=== PATIENT | female | born 1965 | race Two or more races ===

== ENCOUNTER 2019-01-27 04:56 | Inpatient (IN) | payer MEDICARE ==
[~2019-01-27] VITALS: Ht 165.1 cm; Wt 97.5 kg
[2019-01-27] MEDS ORDERED: ALPR0.255 PO (05:25)
[2019-01-27] MEDS ORDERED: VENL150C58 PO (05:25)
[2019-01-27] MEDS ORDERED: MAGNESIUM HYDROXIDE 30 ML UDC PO PRN (05:30)
[2019-01-27] MEDS ORDERED: LORAZEPAM 0.5 MG TABLET PO PRN (05:30)
[2019-01-27] MEDS ORDERED: MAG HYDROX/AL HYDROX/SIMETH 30 ML UDC PO PRN (05:30)
[2019-01-27] MEDS ORDERED: BLOOD SUGAR DIAGNOSTIC 1 EACH STRIP IN ONE (05:30)
[2019-01-27 05:38] VITALS: BP 108/77
[2019-01-27] MEDS ORDERED: PROP40TA7 PO (05:38)
[2019-01-27] MEDS ORDERED: ESOM40CA PO (05:38)
[2019-01-27] MEDS ORDERED: ESTR0.5T PO (05:38)
[2019-01-27] MEDS ORDERED: NICO-677 TD (05:38)
[2019-01-27] MEDS ORDERED: LISI-607 PO (05:38)
[2019-01-27] MEDS ORDERED: GABA800T PO (05:43)
--- NOTE | 2019-01-27 05:46 | NUR ---
Admitted a 54 y/o female from [facility]. On 5150 hold as DTS. Per hold, patient was out of control, taken 10 xanax and alcohol. Patient admitting Dx. Depression and medical hx. of Hypertension. Upon face to face evaluation, patient appeared alert and oriented x 3-4, calm, cooperative, pleasant, interactive, denies si/hi/ah/vh, stated that she was upset and depressed because her father and son is acting out. Explained the paper works and patient sign the consents. Informed of visiting hours and unit policies. Belongings and contraband checked. Q15 min checks initiated. Care plan started. Vital signs checked and recorded. Patient's rights discussed, guide to prescription meds handbook provided. Patient advised of the hold. Notified Dr. Hoff of the admission. MRSA swab done. Advisement explained and patient verbalized understanding. Will monitor patient for mood, safety and behavior. Will endorse to the day shift.
--- NOTE | 2019-01-27 06:17 | NUR ---
GPS-RN PATIENT REFUSED TO HAVE HER BLOOD SUGAR CHECK DESPITE OF EXPLANATION THE RISKS AND BENEFITS. PATIENT STILL REFUSED.
[2019-01-27 07:52] LABS: ALBUMIN 4.2 g/dL (3.4-5.0); BILIRUBIN,TOTAL 0.3 mg/dL (0.2-1.0); CALCIUM, SERUM 9.3 mg/dL (8.5-10.1); TOTAL PROTEIN, SERUM 8.5 g/dL (6.4-8.2)
[2019-01-27 08:00] VITALS: BP 133/62
[2019-01-27] MEDS: LISINOPRIL (5MG) 5 MG TABLET PO SCH (09:03)
[2019-01-27] MEDS: PANTOPRAZOLE 40 MG TABLET.DR PO SCH (09:03)
[2019-01-27] MEDS: NICOTINE PATCH (21MG) 21 MG PATCH.TD24 TD SCH (09:03)
[2019-01-27] MEDS: GABAPENTIN 400 MG CAPSULE PO SCH (09:03)
[2019-01-27] MEDS: PROPRANOLOL HCL 40 MG TABLET PO SCH (09:04)
--- NOTE | 2019-01-27 15:38 | NUR ---
RN NOTE: PATIENT'S BROTHER SANTA RETURNED PHONE CALL, MADE AWARE OF PATIENTS ADMISSION, ALSO INFORMED BROTHER OF PATIENT'S STATE IDENTIFICATION CARD WAS LEFT AT [facility] AND NEEDS TO BE PICKED UP.
[2019-01-27 16:00] VITALS: BP 111/67
[2019-01-27] MEDS: OXCARBAZEPINE 150 MG TABLET PO SCH (18:57)
[2019-01-27 20:07] VITALS: BP 149/86
[2019-01-27] MEDS: TEMAZEPAM 7.5 MG CAPSULE PO PRN (21:59)
[2019-01-28 07:45] LABS: CHOLESTEROL 156 mg/dL (<200); HDL CHOLESTEROL 51 mg/dL (40-60); LDL 79 mg/dL (0-99); TRIGLYCERIDES 193 mg/dL (30-150)
[2019-01-28 08:00] VITALS: BP 146/80
[2019-01-28] MEDS: NICOTINE PATCH (21MG) 21 MG PATCH.TD24 TD SCH (08:46)
[2019-01-28] MEDS: OXCARBAZEPINE 150 MG TABLET PO SCH ×2 (08:47→21:06)
[2019-01-28] MEDS: PANTOPRAZOLE 40 MG TABLET.DR PO SCH (08:47)
[2019-01-28] MEDS: PROPRANOLOL HCL 40 MG TABLET PO SCH (08:47)
[2019-01-28] MEDS: GABAPENTIN 400 MG CAPSULE PO SCH (08:47)
[2019-01-28] MEDS: LISINOPRIL (5MG) 5 MG TABLET PO SCH (08:47)
[2019-01-28] MEDS ORDERED: VENLAFAXINE XR 75 MG CAP.SR.24H PO SCH (09:00)
[2019-01-28] MEDS: VENLAFAXINE XR 75 MG CAP.SR.24H PO SCH (09:14)
[2019-01-28] MEDS: ACETAMINOPHEN 325 MG TABLET PO PRN (11:14)
--- NOTE | 2019-01-28 14:08 | NUR ---
Family Contact: SW called the pts brother, Ryan ([phone]), and informed him about the pts initial discharge plan and the initial treatment plan. SHARIFA stated that she will work with the pt in terms of having alternative coping mechanisms and assisting in her search for a psychiatrist.
--- NOTE | 2019-01-28 15:50 | NUR ---
Initial Discharge Plan: Pt currently resides at [address] [place] [address]; ([phone]). Per pt, she would like to return to her home. SW will work with the pt and the MD regarding appropriate discharge planning. SW will form a safe and proper discharge.
[2019-01-28 16:00] VITALS: BP 144/88
--- NOTE | 2019-01-28 19:55 | NUR ---
RN OPENING NOTES PATIENT WALKING AROUND, TALKING TO PEERS. ALERT AND ORIENTED X 3. NO COMPLAINT OF PAIN OR DISCOMFORT. DENIES SUICIDAL IDEATION OF THIS TIME. EDUCATION GIVEN ON THE USE OF CALL LIGHT. BILATERAL UPPER SIDERAILS UP, LOCK AND AT LOWEST POSITION FOR SAFETY. WANTS SLEEPING PILLS AT 2100. COOPERATIVE. WILL CONTINUE TO MONITOR.
[2019-01-28 20:07] VITALS: BP 142/100
[2019-01-28] MEDS: TEMAZEPAM 7.5 MG CAPSULE PO PRN (21:05)
[2019-01-29] MEDS: PANTOPRAZOLE 40 MG TABLET.DR PO SCH (07:54)
[2019-01-29 08:00] VITALS: BP 140/95
[2019-01-29] MEDS: LISINOPRIL (5MG) 5 MG TABLET PO SCH (08:03)
[2019-01-29] MEDS: GABAPENTIN 400 MG CAPSULE PO SCH (08:04)
[2019-01-29] MEDS: VENLAFAXINE XR 75 MG CAP.SR.24H PO SCH (08:04)
[2019-01-29] MEDS: PROPRANOLOL HCL 40 MG TABLET PO SCH (08:04)
[2019-01-29] MEDS: NICOTINE PATCH (21MG) 21 MG PATCH.TD24 TD SCH (08:07)
[2019-01-29] MEDS: OXCARBAZEPINE 150 MG TABLET PO SCH ×3 (08:09→20:24)
--- NOTE | 2019-01-29 11:41 | NUR ---
Substance Abuse Intervention: SW conducted a substance abuse intervention with the pt regarding her Xanax abuse and her alcohol abuse.
--- NOTE | 2019-01-29 12:27 | NUR ---
Group Note: SW encouraged the pt to participate in group therapy on 01/28/19 at 2pm discussing the topic of social supports. Pt stated that she was feeling emotional regarding her family and therefore she did not feel comfortable participating. SW stated that it may be a good challenge and may allow her to work through her support but she refused.
[2019-01-29 15:54] VITALS: BP 143/76
--- NOTE | 2019-01-29 19:10 | NUR ---
GPS/RN OPENING NOTES RECEIVED PATIENT ALERT, ORIENTED, AWAKE AND ABLE TO SOCIALIZE WITH FAMILY AND ROOM MATE. FAMILY SUPPORTIVE WILL MONITOR PATIENT AND PROVIDE CARE, ASSIST AND KEEP PATIENT SAFE. RECEIVED ENDORSEMENT FROM AM RN FOR VANCE.
[2019-01-29 19:42] VITALS: BP 131/93
[2019-01-29 20:00] VITALS: BP 131/93
[2019-01-29] MEDS: TEMAZEPAM 7.5 MG CAPSULE PO PRN (21:29)
--- NOTE | 2019-01-29 21:30 | NUR ---
gps/rn notes RESTORIL 7.5 MG PO GIVEN PER PATIENT REQUEST PATIENT UNABLE TO SLEEP.MONITORED AND INSTRUCTED ON SAFETY PREVENTIVE MEASURES. VERBALZIED UNDERSTANDING.
[2019-01-30 08:00] VITALS: BP 130/70
[2019-01-30] MEDS: PANTOPRAZOLE 40 MG TABLET.DR PO SCH (08:03)
[2019-01-30] MEDS: GABAPENTIN 400 MG CAPSULE PO SCH (08:03)
[2019-01-30] MEDS: OXCARBAZEPINE 150 MG TABLET PO SCH ×3 (08:04→20:21)
[2019-01-30] MEDS: NICOTINE PATCH (21MG) 21 MG PATCH.TD24 TD SCH (08:04)
[2019-01-30] MEDS: VENLAFAXINE XR 75 MG CAP.SR.24H PO SCH (08:04)
[2019-01-30] MEDS: PROPRANOLOL HCL 40 MG TABLET PO SCH (08:05)
[2019-01-30] MEDS: LISINOPRIL (5MG) 5 MG TABLET PO SCH (08:05)
[2019-01-30 16:00] VITALS: BP 112/64
[2019-01-30] MEDS: ACETAMINOPHEN 325 MG TABLET PO PRN (18:05)
--- NOTE | 2019-01-30 18:15 | NUR ---
RN NOTE- PT C/O GENERALIZED DISCOMFORT. TYLENOL PRN GIVEN.
[2019-01-30 19:54] VITALS: BP 103/65
[2019-01-30] MEDS: TEMAZEPAM 7.5 MG CAPSULE PO PRN (21:22)
[2019-01-31 08:00] VITALS: BP 102/62
[2019-01-31] MEDS: GABAPENTIN 400 MG CAPSULE PO SCH (08:14)
[2019-01-31] MEDS: PANTOPRAZOLE 40 MG TABLET.DR PO SCH (08:14)
[2019-01-31] MEDS: OXCARBAZEPINE 150 MG TABLET PO SCH ×3 (08:15→20:16)
[2019-01-31] MEDS: PROPRANOLOL HCL 40 MG TABLET PO SCH (08:17)
[2019-01-31] MEDS: LISINOPRIL (5MG) 5 MG TABLET PO SCH (08:17)
[2019-01-31] MEDS: NICOTINE PATCH (21MG) 21 MG PATCH.TD24 TD SCH (08:23)
[2019-01-31] MEDS ORDERED: VENLAFAXINE XR 37.5 MG CAP.SR.24H PO SCH (09:00)
[2019-01-31 16:00] VITALS: BP 144/83
--- NOTE | 2019-01-31 19:30 | NUR ---
GPS RN opening notes Received Pt awake in bed. Pt is alert and oriented X3. Respiration is normal in room air. No SOB. No S/S of distress noted. Pt is med compliant, pleasant, and calm. Pt has a steady gait. Pt denies SI or HI at this time. Reality orientation provided. Will encourage Pt to verbalize feelings and concerns. Offered oral fluids and snacks. Safety and fall precautions. Will continue to monitor Q 15 mins check for mood safety and behavior per [facility] hospital protocol.
[2019-01-31 20:00] VITALS: BP 132/82
[2019-01-31 20:15] VITALS: BP 152/82
[2019-01-31] MEDS: ACETAMINOPHEN 325 MG TABLET PO PRN (20:16)
[2019-01-31] MEDS: TEMAZEPAM 7.5 MG CAPSULE PO PRN (20:16)
--- NOTE | 2019-01-31 20:16 | NUR ---
GPS RN notes Pt is complaining of back pain. Administered Tylenol 325 mg/2 tabs/PO as ordered for back pain per Pt request. Instructed to call. Will continue to monitor.
--- NOTE | 2019-01-31 20:20 | NUR ---
GPS RN notes Administered Restoril 7.5 mg/1 tab/PO as ordered for sleeping per Pt request. Pt states " I want to go to sleep now." Instructed to call. Safety precautions is maintained. Will continue to monitor.
[2019-02-01] MEDS: PANTOPRAZOLE 40 MG TABLET.DR PO SCH (07:45)
[2019-02-01 08:00] VITALS: BP 133/92
[2019-02-01] MEDS: PROPRANOLOL HCL 40 MG TABLET PO SCH (08:28)
[2019-02-01] MEDS: NICOTINE PATCH (21MG) 21 MG PATCH.TD24 TD SCH (08:28)
[2019-02-01] MEDS: LISINOPRIL (5MG) 5 MG TABLET PO SCH (08:29)
[2019-02-01] MEDS: OXCARBAZEPINE 150 MG TABLET PO SCH ×3 (08:29→21:10)
[2019-02-01] MEDS: GABAPENTIN 400 MG CAPSULE PO SCH (08:29)
[2019-02-01] MEDS: ACETAMINOPHEN 325 MG TABLET PO PRN (12:17)
--- NOTE | 2019-02-01 15:00 | NUR ---
GROUP NOTE: SW encouraged pt to participate in group therapy on this present day discussing "discharge planning." Pt stated that she was ready to leave and that she was scheduled to discharge tomorrow back home. Pt stated that she feels better and has been coming out to her room and talking to other pts. Pt remained withdrawn and only participated when it was her turn. Pt appeared with a pleasant mood with congruent affect, pt was working on a puzzle with another pt and was alert and oriented.
--- NOTE | 2019-02-01 15:29 | NUR ---
Family Contact: SHARIFA called the pts brother, Ryan ([phone]), and informed him that the pt is being discharged the following day. He stated that he will come pick her up around 12.
--- NOTE | 2019-02-01 15:46 | NUR ---
Family Contact: Ryan ([phone]), pts brother, called the SW and stated that he wanted to be informed about the medication changes so the SW explained the medications that the pt is currently on and which medications were discontinued. SW also informed him about the referral to the Partial Program and the recommendation for it from the MD.
--- NOTE | 2019-02-01 15:46 | NUR ---
Partial Program Referral: SHARIFA faxed a referral to the [facility] with attention to Geeta to the fax number: [phone].
[2019-02-01 16:13] VITALS: BP 137/81
[2019-02-01 21:02] VITALS: BP 140/76
[2019-02-01] MEDS: TEMAZEPAM 7.5 MG CAPSULE PO PRN (21:10)
[2019-02-02 08:00] VITALS: BP 130/91
[2019-02-02] MEDS: NICOTINE PATCH (21MG) 21 MG PATCH.TD24 TD SCH (08:41)
[2019-02-02] MEDS: GABAPENTIN 400 MG CAPSULE PO SCH (08:41)
[2019-02-02 08:42] VITALS: BP 130/91
[2019-02-02] MEDS: LISINOPRIL (5MG) 5 MG TABLET PO SCH (08:42)
[2019-02-02] MEDS: OXCARBAZEPINE 150 MG TABLET PO SCH ×2 (08:42→12:56)
[2019-02-02] MEDS: PROPRANOLOL HCL 40 MG TABLET PO SCH (08:42)
[2019-02-02] MEDS: PANTOPRAZOLE 40 MG TABLET.DR PO SCH (08:42)
[2019-02-02] MEDS: ACETAMINOPHEN 325 MG TABLET PO PRN (12:02)
--- NOTE | 2019-02-02 12:23 | NUR ---
GPS/RN-NOTES PATIENT C/O OF SORE THROAT AND REQUESTING FOR TYLENOL.,TYLENOL 650MG P.O GIVEN PRN ORDER. WILL CONT. MONITORING FOR SAFETY.
--- NOTE | 2019-02-02 12:25 | NUR ---
GPS/RN-NOTES PATIENT WATCHING TV IN THE DAY ROOM ,CALM DENIES ANY PAIN OR DISCOMFORT AT THIS TIME.
--- NOTE | 2019-02-02 14:00 | NUR ---
GPS/RN-NOTES PATIENT DISCHARGE TO HOME TODAY. DR. POLLACK AND DR. JOSEPH MADE AWARE AND AGREES OF PATIENT DISCHARGE.ALL DISCHARGE MEDICATIONS WA REVIEWED WITH THE PATIENT WITH UNDERSTANDING. PER PATIENT SHE DON'T NEED ANY MEDICATIONS UNDER MEDICAL DUE TO SHE STILL HAVE SOME AT HOME RX WAS GIVEN TO THE PATIENT AND SIGN ALL DISCHARGE PAPERS. INSTRUCTED PATIENT TO FOLLOW UP WITH PRIMARY PHYSICIAN IN A WEEK ,CALL 911 OR GO TO THE NEAREST EMERGENCY ROOM IN- CASE OF EMERGENCY. PATIENT LEFT THE UNIT IN STABLE CONDITION ALERT ORIENTED X4 AMBULATORY STEADY GAIT. PATIENT DID NOT VERBALIZE SI/HI,DENIES VISUAL /AUDITORY HALLUCINATIONS AT THE TIME OF DISCHARGE.PATIENT LEFT THE UNIT WITH ALL BELONGS, AND WAS JAVA SOFTWARE ARCHITECT BY BROTHER SANTA/SON GAVIN VIA PRIVATE CAR.PATIENT WAS ASSISTED IN THE LOBBY FOR SAFETY.
--- NOTE | 2019-02-02 14:26 | NUR ---
Discharge Note: Pt was discharged to her home located at [address] [place] [id number]; ([phone]). Pt was picked up by her brother, Ryan ([phone]), at around 1:30PM. Upon discharge, the pt appeared to be in a euthymic mood and presented with a calm affect. Pt denied both suicidal and homicidal ideation as well as auditory and visual hallucinations. Pt was provided with substance abuse referrals and was referred to [facility]. Pt will be under the care of her psychiatrist, Dr. Carl[place], [place] [address] [place] [address]; ([phone]) and her senior web analyst, Dr. Vincent Fisher, located at [address] [facility] [address] [address]; .
--- NOTE | 2019-02-17 12:41 | NUR ---
Substance Abuse Intervention: SW called the pt ([phone]) and she stated that she did not need the program because it was not a good fit for her and stated that her providers and her family have assisted her in quitting substances.
== END 2019-02-02 14:00 | disposition home or self-care (01) | DRG 885 ==
LOC: GPS 04:56
PROVIDERS: ADMIT Psychiatry & Neurology Psychosomatic Medicine; ATTEND Internal Medicine
DX: F31.9 Bipolar disorder, unspecified (principal); F23 Brief psychotic disorder; R45.851 Suicidal ideations; I10 Essential (primary) hypertension; Z88.2 Allergy status to sulfonamides; G62.9 Polyneuropathy, unspecified; F41.9 Anxiety disorder, unspecified; F19.90 Other psychoactive substance use, unspecified, uncomplicated; Z72.89 Other problems related to lifestyle
CPT/HCPCS: 36415; 80053-TC; 80061-TC; 87081-TC